=== PATIENT | female | born 1950 | race Caucasian/White ===

== ENCOUNTER 2016-10-26 10:34 | Inpatient (IN) ==
[2016-10-26] MEDS ORDERED: IPRATROPIUM/ALBUTEROL 3 ML AMPUL.NEB NEB ONE (10:57)
--- NOTE | 2016-10-26 10:57 | Emergency Department Note ---
SOB HPI - General Chief Complaint: Shortness of Breath/Dyspnea Stated Complaint: SOB/asthma Time Seen by Provider: 10/26/16 10:53 Source: patient Mode of arrival: ambulatory - History of Present Illness this patient says she was diagnosed with pneumonia a month ago and has taken 2 rounds of antibiotics including doxycycline and Zithromax which she is on currently. She continues to have cough congestion fever and chills and wheezing from her asthma. MD Complaint: shortness of breath, cough Onset (ago): week(s) Context: recent illness Severity: moderate Consistency/Duration: constant Known history of: asthma - Related Data Home Medications Medication Instructions Recorded Confirmed albuterol sulfate HFA 90 90 mcg INHALATION ONCE PRN g 06/12/15 10/26/16 mcg/actuation aerosol inhaler cholecalciferol (vitamin D3) 2,000 2,000 unit PO ONCE 08/04/16 10/26/16 unit capsule tamoxifen 20 mg tablet 20 mg PO QDAY 09/08/16 10/26/16 Previous Rx's Medication Instructions Recorded pramipexole 1 mg tablet 3 mg PO QHS #90 tab 07/14/16 blood sugar diagnostic strips See Dose Instructions .ROUTE 08/04/16 .MEDSUPPLY #200 each blood-glucose meter See Dose Instructions .ROUTE 08/04/16 .MEDSUPPLY #1 each lancets 31 gauge See Dose Instructions .ROUTE 08/04/16 .MEDSUPPLY #200 each metformin ER 500 mg 500 mg PO BID #180 tab 09/08/16 tablet,extended release 24 hr metoprolol succinate ER 50 mg 50 mg PO QDAY #60 tab 09/08/16 tablet,extended release 24 hr albuterol sulfate 2.5 mg/3 mL 2.5 mg INHALATION Q4H PRN #120 ml 10/15/16 (0.083 %) solution for nebulization fluticasone-salmeterol 115 mcg-21 2 inh INHALATION Q12H #12 g 10/20/16 mcg/actuation HFA aerosol inhaler prednisone 5 mg tablet 5 mg PO .COMPLEX #60 tab 10/20/16 valsartan 80 mg tablet 80 mg PO QDAY #60 tab 10/20/16 Allergies Allergy/AdvReac Type Severity Reaction Status Date / Time latex Allergy Unknown Blister Verified 10/20/16 16:20 Penicillins Allergy Unknown Difficulty Verified 10/20/16 16:20 Breathing Muscle relaxers Allergy Unknown Hallucinati Uncoded 07/14/16 07:55 ng shell fish Allergy Unknown Anaphylaxis Uncoded 07/14/16 07:55 Review of Systems Constitutional: Reports: fever, chills Eyes: Denies: eye pain ENT ED: Denies: ear pain Cardiovascular: Denies: chest pain Respiratory: Reports: cough, dyspnea, wheezes Gastrointestinal: Denies: abdominal pain, nausea, vomiting Genitourinary: Denies: urgency Musculoskeletal: Denies: back pain Integumentary: Denies: rash Neurological: Denies: headache Psychiatric: Denies: anxiety Endocrine: Denies: fatigue Past Medical History - Past Medical History [facility] Narrative: Medical History (Last Updated 10/20/16 @ 16:34 by Claudio Wilkinson MD) Restless leg (Chronic) Osteopenia (Chronic) Hypertension (Chronic) Fibromyalgia (Chronic) Breast cancer (Chronic) Asthma (Chronic) History of lumbar fusion (Chronic) Past Surgical History (Last Updated 07/14/16 @ 08:45 by Claudio Wilkinson MD ) History of reduction surgery of right breast (Chronic) Hx of section (Chronic) Hx of cholecystectomy (Chronic) Hx of colonoscopy (Chronic) Hx of fusion of cervical spine (Chronic) Hx of hysterectomy (Chronic) Hx of laminectomy (Chronic) Hx of left breast implant (Chronic) Hx of left knee surgery (Chronic) Hx of spinal surgery (Chronic) Hx of total mastectomy of left breast (Chronic) Family History maternal grandmother Arthritis mother Malignant neoplasm of lung Migraine father Type 2 diabetes mellitus Hypertension daughter Disorder of thyroid Physical Exam - General Limitations: no limitations General appearance: alert - Head Head exam: atraumatic, normocephalic - Eye Eye exam: Present: normal appearance - ENT ENT exam: normal exam - Neck Neck exam: Present: normal inspection - Chest Chest inspection: Present: normal inspection - Respiratory Respiratory exam: Present: wheezes - Cardiovascular Cardiovascular exam: Present: regular rate, normal rhythm, normal heart sounds - Abdominal Exam Abdominal exam: Present: soft. Absent: distention, tenderness - Neurological Exam Neurological exam: Present: alert - Psychiatric Psychiatric exam: Present: normal affect, normal mood - Skin Skin exam: Present: warm, dry, intact, normal color Course Vital Signs Temperature 97.9 F 10/26/16 10:35 Pulse Rate 87 10/26/16 10:35 Respiratory Rate 20 10/26/16 10:35 Blood Pressure 141/98 10/26/16 10:35 Pulse Oximetry (%) 95 10/26/16 10:35 Temperature 97.9 F 10/26/16 10:35 Pulse Rate 84 10/26/16 12:31 Respiratory Rate 20 10/26/16 12:31 Blood Pressure 128/65 10/26/16 12:31 Pulse Oximetry (%) 94 10/26/16 12:31 Shortness of Breath/Dyspnea - [facility] Narrative Medical decision making narrative: chest x-ray today shows normal, CT scan last Wednesday also has a showed right upper and right middle lobe infiltrates.white count was elevated lactic acid was elevated the patient feels terrible.we gave her a DuoNeb treatment. She will be admitted to the hospital by the hospitalist service. - Lab Data Lab results reviewed: Yes I reviewed the patient's lab results. Result diagrams: 10/26/16 11:12 10/26/16 11:12 Lab Results 10/26/16 10/26/16 10/26/16 Range/Units 11:12 11:12 11:12 WBC 14.7 H (4.5-11.0) K/mcL RBC 5.45 H (4.00-5.20) M/mcL Hgb 16.0 H (12.0-15.0) g/dL Hct 48.1 H (36.0-48.0) % MCV 88.3 (80.0-100.0) fL MCH 29.3 (26.0-34.0) pg MCHC 33.2 (31.0-36.0) g/dL RDW 12.7 (11.5-14.5) % Plt Count 320 (140-440) K/mcL MPV 8.4 (7.4-10.4) fL Gran % 88.2 H (38.0-78.0) % Lymph % (Auto) 10.1 L (15.5-49.0) % [place] % (Auto) 1.3 (1.0-12.0) % Eos % (Auto) 0.2 (0.0-7.0) % Baso % (Auto) 0.2 (0.0-2.0) % Gran # 13.0 H (1.8-8.0) K/mcL Lymph # (Auto) 1.5 (1.5-4.8) K/mcL [place] # (Auto) 0.2 (0.1-0.9) K/mcL Eos # (Auto) 0 (0.0-0.7) K/mcL Baso # (Auto) 0 (0.0-0.3) K/mcL VBG Lactic Acid 3.3 H (0.5-2.2) mmol/L Sodium 134 (133-145) mmol/L Potassium 4.8 (3.3-5.1) mmol/L Chloride 94 L (96-108) mmol/L Carbon Dioxide 26 (22-30) mmol/L Anion Gap 14.0 (8-16) BUN 13 (8-23) mg/dl Creatinine 0.9 (0.6-1.1) mg/dl GFR Calculation 67 Glucose 216 H (70-105) mg/dL Calcium 9.4 (8.6-10.4) mg/dl Total Bilirubin 0.7 (0.0-1.0) mg/dL AST 46 H (0-37) U/l ALT 43 H (0-40) U/l Alkaline Phosphatase 67 (39-117) U/L Total Protein 7.6 (5.9-8.4) gm/dL Albumin 4.1 (3.2-5.2) gm/dL Globulin 3.5 (2.2-3.7) gm/dL Albumin/Globulin Ratio 1.2 (1.0-2.3) - Radiology Data Radiology results reviewed: Yes I reviewed the patient's radiology results. Disposition Pt seen by VOCATIONAL TECHNICAL EDUCATION TEACHER/PA only: No Clinical Impression: Community acquired pneumonia Disposition: Xfer As Outpt/Obs ([facility]) Condition: Good Referrals: Claudio Wilkinson MD [Primary Care Provider] - Time of Disposition: 12:54
[2016-10-26 11:34] LABS: Basophils # (Auto) 0 K/mcL (0.0-0.3); Basophils % (Auto) 0.2 % (0.0-2.0); Eosinophils # (Auto) 0 K/mcL (0.0-0.7); Eosinophils % (Auto) 0.2 % (0.0-7.0); Granulocytes % (Auto) 88.2 % (38.0-78.0); Lymphocytes # (Auto) 1.5 K/mcL (1.5-4.8); Lymphocytes % (Auto) 10.1 % (15.5-49.0); Mean Cell Volume 88.3 fL (80.0-100.0); Mean Corpuscular HGB Conc 33.2 g/dL (31.0-36.0); Mean Corpuscular Hemoglobin 29.3 pg (26.0-34.0); Monocytes # (Auto) 0.2 K/mcL (0.1-0.9); Monocytes % (Auto) 1.3 % (1.0-12.0); Platelet Count 320 K/mcL (140-440); RBC 5.45 M/mcL (4.00-5.20); Red Cell Distribution Width 12.7 % (11.5-14.5)
[2016-10-26 11:56] LABS: ALT/SGPT 43 U/l (0-40); Albumin 4.1 gm/dL (3.2-5.2); Albumin/Globulin Ratio 1.2 (1.0-2.3); Alkaline Phosphatase 67 U/L (39-117); Blood Urea Nitrogen 13 mg/dl (8-23)
--- NOTE | 2016-10-26 12:41 | XRay Report ---
CLINICAL INFORMATION: Cough COMPARISON: 10/14/2016 FINDINGS: Heart size, mediastinum and pulmonary vessels are normal. Lungs are clear. No effusions. Spinal cord stimulator electrode and leads in stable satisfactory position. Mild old compression fractures mid thoracic spine stable IMPRESSION: No acute cardiopulmonary disease - stable from 10/14/2016 Interpreted and Authenticated by: Palmer Roche 10/26/16
[2016-10-26 13:43] LABS: Appearance,Urine HAZY; Bacteria,Urine FEW /hpf (0); Bilirubin,Urine NEG (NEG); Color,Urine YELLOW; Glucose,Urine (UA) NEGATIVE (NEG); Leukocyte Esterase,Urine 75 /uL (NEG); Mucus,Urine FEW /hpf (0); Nitrate,Urine POS (NEG); Protein,Urine NEG (NEG); Urine Amorphous Crystals FEW /hpf (0); Urine Blood 0.03 mg/dL (<0.03); Urine RBC 1 /hpf (0-1); Urine Squamous Epithelial Cell 0 /hpf (0-4); Urine Transitional Epi Cells 1 /hpf (0-2); Urine WBC 53 /hpf (0-4); Urobilinogen,Urine NEG (NEG)
[2016-10-26] MEDS ORDERED: ONDANSETRON 4 MG/2 ML VIAL IV PRN (13:55)
[2016-10-26] MEDS ORDERED: ACETAMINOPHEN 325 MG TABLET PO PRN (13:55)
[2016-10-26] MEDS ORDERED: VANCOMYCIN PER PHARMACY IV SCH (13:55)
[2016-10-26] MEDS ORDERED: CEFEPIME 1 GM in DEXTROSE 5% IN WATER 50 ML IV SCH (14:00)
[2016-10-26] MEDS: 0.9 % SODIUM CHLORIDE 1,000 ML IV SCH ×2 (14:20→19:40)
[2016-10-26] MEDS: CEFEPIME 1 GM in DEXTROSE 5% IN WATER 50 ML IV SCH ×2 (14:49→21:52)
[2016-10-26] MEDS: VANCOMYCIN 1,500 MG in 0.9 % SODIUM CHLORIDE 500 ML IV SCH (15:29)
[2016-10-26] MEDS ORDERED: 0.9 % SODIUM CHLORIDE 1,000 ML IV ONE (15:35)
[2016-10-26] MEDS: IPRATROPIUM/ALBUTEROL 3 ML AMPUL.NEB NEB SCH ×3 (15:54→23:05)
[2016-10-26] MEDS ORDERED: DEXTROSE 31 GM ORAL.SUSP PO PRN (17:46)
[2016-10-26] MEDS ORDERED: DEXTROSE 50% 50 ML VIAL IV PRN (17:46)
[2016-10-26] MEDS: metFORMIN 500 MG TAB.XL.24H PO SCH (18:01)
--- NOTE | 2016-10-26 18:18 | Internal Med History&Physical ---
Medical - H&P: HPI Patient information: Note initiated : 10/26/16 at 6:15 pm Service Date, if different from initiated Date: [] Patient: Michelle Green a 66 y/o F admitted on 10/26/16 for SOB/asthma. Chief Complaint: [] History of present illness: Ms. Green is a 66 year old Female with history of asthma, history of breast cancer presents to the ER with complaints of shortness of breath and not feeling well. According to the patient, she startedto have these symptoms approximately 1 month ago when [place] The patient was treated with a short course of steroids and antibiotics by her primary care physician at that point. The patient responded to treatment. However a three weeks later he started to have symptoms again. The patient's primary care physician started the patient on a long prednisone taper as well as Zithromax. the patient 's primary care provider ordered a CT scan which showed pneumonia in the right middle and upper lobe. The last 2 days. The patient has not been feeding well and is increasingly more short of breath ssociated with wheezing and dry cough. The patient has decreased effort tolerance. The shortness of breath is worse with activity and better with rest. Aggravated by smoke outside. The patient therefore presented to the ED. In the emergency room the x-ray chest is interpreted as negative. The patient's labs showed leukocytosis, elevated lactic acid, and a urine analysis positive, which is indicative of a urinary tract infection.he patient denies any symptoms suggestive of urinary tract infection, like burning micturition, foul-smelling urine or increased frequency of urination. The patient denies any chest pain, headache, dizziness, blurring of vision, sputum production, hemoptysis. She denies nausea, vomiting. She denies any COMPLAINTS, the patient has no other complaints except as mentioned above in HPI. All systems: reviewed and no additional remarkable complaints except as stated ( as per HPI) Medical - H&P: [facility] Medical history: Medical History (Last Updated 10/26/16 @ 12:54 by Christopher Mcgovern MD) Restless leg (Chronic) Osteopenia (Chronic) Hypertension (Chronic) Fibromyalgia (Chronic) Breast cancer (Chronic) Asthma (Chronic) History of lumbar fusion (Chronic) Surgical history: Past Surgical History (Last Updated 07/14/16 @ 08:45 by Claudio Wilkinson MD ) History of reduction surgery of right breast (Chronic) Hx of section (Chronic) Hx of cholecystectomy (Chronic) Hx of colonoscopy (Chronic) Hx of fusion of cervical spine (Chronic) Hx of hysterectomy (Chronic) Hx of laminectomy (Chronic) Hx of left breast implant (Chronic) Hx of left knee surgery (Chronic) Hx of spinal surgery (Chronic) Hx of total mastectomy of left breast (Chronic) Pertinent family history: Family History maternal grandmother Arthritis mother Malignant neoplasm of lung Migraine father Type 2 diabetes mellitus Hypertension daughter Disorder of thyroid Medical - H&P: Meds Home Medications Medication Instructions Recorded Confirmed Type albuterol sulfate HFA 90 90 mcg INHALATION ONCE PRN g 06/12/15 10/26/16 History mcg/actuation aerosol inhaler cholecalciferol (vitamin D3) 2,000 2,000 unit PO DAILY 08/04/16 10/26/16 History unit capsule metformin ER 500 mg 500 mg PO BID #180 tab 09/08/16 10/26/16 Rx tablet,extended release 24 hr tamoxifen 20 mg tablet 20 mg PO HS 09/08/16 10/26/16 History albuterol sulfate 2.5 mg/3 mL 2.5 mg INHALATION Q4H PRN #120 ml 10/15/16 Rx (0.083 %) solution for nebulization fluticasone-salmeterol 115 mcg-21 2 inh INHALATION Q12H #12 g 10/20/16 10/26/16 Rx mcg/actuation HFA aerosol inhaler prednisone 5 mg tablet 5 mg PO .COMPLEX #60 tab 10/20/16 10/26/16 Rx valsartan 80 mg tablet 80 mg PO QDAY #60 tab 10/20/16 10/26/16 Rx Blood Sugar Diagnostic [Contour] 1 dose .ROUTE .MEDSUPPLY 10/26/16 History Blood-Glucose Meter [Contour] 1 dose .ROUTE .MEDSUPPLY 10/26/16 10/26/16 History Lancets [Pro Comfort Lancet] 1 dose .ROUTE .MEDSUPPLY 10/26/16 10/26/16 History Metoprolol Succinate [Toprol Xl] 50 mg PO HS 10/26/16 10/26/16 History Pramipexole Di-HCl [Mirapex] 2 mg PO QHS 10/26/16 10/26/16 History Allergies Allergy/AdvReac Type Severity Reaction Status Date / Time Penicillins Allergy Severe Difficulty Verified 10/26/16 13:58 Breathing shellfish derived Allergy Severe Anaphylaxis Verified 10/26/16 13:58 latex Allergy Unknown Blister Verified 10/20/16 16:20 Medical - H&P: Exam - Constitutional Vitals: Temp Pulse Resp BP Pulse Ox 99.1 F H 86 18 137/61 95 10/26/16 16:06 10/26/16 16:06 10/26/16 16:06 10/26/16 16:06 10/26/16 16:06 Exam: GENERAL: The patient is a well-developed, well-nourished in no apparent distress. Is alert and oriented x3. VITAL SIGNS: Reviewed and as noted elsewhere. HEENT: Head is normocephalic and atraumatic. Extraocular muscles are intact. Pupils are equal, round, and reactive to light. Nares appeared normal. Mouth appears any without lesions. Mucous membranes are moist. NECK: Normal to inspection, Supple, No lymphadenopathy or thyromegaly. LUNGS: Air entry equal on both sides, bilateral poor air entry, bilateral wheezing and proloned exp phase. patient is able to speak full sentences, no accessory muscle use. HEART: Regular rate and rhythm normal, S1 and S2 heard, no Gallop, S3 or Rub Noted, No Gross murmur heard. ABDOMEN: Soft, nontender, and nondistended. Positive bowel sounds. No hepatosplenomegaly was noted. EXTREMITIES: No cyanosis, clubbing, rash, lesions or edema. NEUROLOGIC: Cranial nerves II through XII are grossly intact. Motor and Sensory System Grossly Intact PSYCHIATRIC: Normal affect, Normal Mood. Appropriate Behavior. SKIN: No ulceration or wounds noted, No jaundice, No rash noted. Medical - H&P: Reslt - Labs CBC & Chem 7: 10/26/16 11:12 10/26/16 11:12 Medical - H&P: A/P - Narrative A/P Narrative: A/P Sepsis Pneumonia community Acquired Lactic acidosis Hypglycemia H/o Breast cancer HTN Acute hypoxic Respiratory failure Acute asthma exacerbation. Plan Treat sepsis per protocol, IV fluids, IV antibiotics. IV vanco and zosyn for pneumonia, check urine legionella and mycoplasma antigen. , Pt has already recieved zithromax Iv steroids and DUonebs for asthma Sliding sclae insulin , fingerstick achs. Resume home meds, hold metformin. Oxygen supplementation; DNR Status Carb consistent diet. Medical - H&P: Qual - Stroke Symptom Onset Unknown: No - VTE Deep Vein Thrombosis/Pulmonary Embolism Present on Admission: No Social History - Social History marital status: occupational status: retired - Tobacco smoking status: Never smoker - Alcohol alcohol intake frequency: does not drink - Substance use substance use type: does not use
[2016-10-26] MEDS: TAMOXIFEN 10 MG TABLET PO SCH (21:04)
[2016-10-26] MEDS: METOPROLOL SUCCINATE 50 MG TAB.XL.24H PO SCH (21:04)
[2016-10-26] MEDS: PRAMIPEXOLE 1 MG TABLET PO SCH (21:04)
[2016-10-26] MEDS: INSULIN LISPRO 1 UNIT/0.01 ML UNIT SQ SCH (21:09)
[2016-10-26] MEDS: methylPREDNISolone SOD SUCC 125 MG/2 ML VIAL IV SCH (21:52)
[2016-10-26] MEDS: guaiFENesin/DEXTROMETHORPHAN ORAL SOL PO PRN (22:09)
[2016-10-27] MEDS: IPRATROPIUM/ALBUTEROL 3 ML AMPUL.NEB NEB SCH ×6 (02:26→23:09)
[2016-10-27] MEDS: 0.9 % SODIUM CHLORIDE 1,000 ML IV SCH ×3 (02:32→09:15)
[2016-10-27] MEDS: guaiFENesin/DEXTROMETHORPHAN ORAL SOL PO PRN ×3 (02:34→18:19)
[2016-10-27] MEDS: methylPREDNISolone SOD SUCC 125 MG/2 ML VIAL IV SCH ×3 (05:44→21:07)
[2016-10-27] MEDS: CEFEPIME 1 GM in DEXTROSE 5% IN WATER 50 ML IV SCH ×3 (05:44→20:58)
[2016-10-27 05:52] LABS: Basophils # (Auto) 0 K/mcL (0.0-0.3); Basophils % (Auto) 0 % (0.0-2.0); Eosinophils # (Auto) 0 K/mcL (0.0-0.7); Eosinophils % (Auto) 0 % (0.0-7.0); Granulocytes % (Auto) 93.1 % (38.0-78.0); Lymphocytes # (Auto) 0.7 K/mcL (1.5-4.8); Lymphocytes % (Auto) 6.5 % (15.5-49.0); Mean Cell Volume 90.8 fL (80.0-100.0); Mean Corpuscular HGB Conc 33.4 g/dL (31.0-36.0); Mean Corpuscular Hemoglobin 30.4 pg (26.0-34.0); Monocytes # (Auto) 0 K/mcL (0.1-0.9); Monocytes % (Auto) 0.4 % (1.0-12.0); Platelet Count 216 K/mcL (140-440); RBC 4.27 M/mcL (4.00-5.20); Red Cell Distribution Width 12.6 % (11.5-14.5)
[2016-10-27 06:21] LABS: ALT/SGPT 34 U/l (0-40); Albumin 3.3 gm/dL (3.2-5.2); Albumin/Globulin Ratio 1.2 (1.0-2.3); Alkaline Phosphatase 51 U/L (39-117); Bilirubin,Direct < 0.2 mg/dL (0.0-0.3); Blood Urea Nitrogen 12 mg/dl (8-23); Gamma Glutamyl Transpeptidase 97 U/L (5-36); Magnesium 1.9 mg/dL (1.6-2.5); Uric Acid 6.1 mg/dL (2.5-8.0)
[2016-10-27] MEDS: metFORMIN 500 MG TAB.XL.24H PO SCH ×2 (07:51→17:48)
[2016-10-27] MEDS: INSULIN LISPRO 1 UNIT/0.01 ML UNIT SQ SCH ×4 (08:03→21:02)
[2016-10-27] MEDS: VANCOMYCIN 1,500 MG in 0.9 % SODIUM CHLORIDE 500 ML IV SCH (08:44)
[2016-10-27] MEDS: VITAMIN D3 1,000 UNIT TABLET PO SCH (08:44)
[2016-10-27] MEDS: LOSARTAN 50 MG TABLET PO SCH (08:44)
[2016-10-27] MEDS ORDERED: VALSARTAN 80 MG TABLET PO SCH (09:00)
--- NOTE | 2016-10-27 17:31 | Internal Med Progress Note ---
Medical - PN: Subj Patient information: Note initiated : 10/27/16 at 5:29 pm Service Date, if different from initiated Date: [] Patient: Michelle Green a 66 y/o F admitted on 10/26/16 for SOB, Asthma/ Sepsis, Pneumonia. Chief Complaint: [] Interval history: Ms. Green is a 66 year old Female with history of asthma, history of breast cancer presents to the ER with complaints of shortness of breath and not feeling well. According to the patient, she startedto have these symptoms approximately 1 month ago when [place] The patient was treated with a short course of steroids and antibiotics by her primary care physician at that point. The patient responded to treatment. However a three weeks later he started to have symptoms again. The patient's primary care physician started the patient on a long prednisone taper as well as Zithromax. the patient 's primary care provider ordered a CT scan which showed pneumonia in the right middle and upper lobe. The last 2 days. The patient has not been feeding well and is increasingly more short of breath ssociated with wheezing and dry cough. The patient has decreased effort tolerance. The shortness of breath is worse with activity and better with rest. Aggravated by smoke outside. The patient therefore presented to the ED. In the emergency room the x-ray chest is interpreted as negative. The patient's labs showed leukocytosis, elevated lactic acid, and a urine analysis positive, which is indicative of a urinary tract infection.he patient denies any symptoms suggestive of urinary tract infection, like burning micturition, foul-smelling urine or increased frequency of urination. The patient denies any chest pain, headache, dizziness, blurring of vision, sputum production, hemoptysis. She denies nausea, vomiting. She denies any COMPLAINTS, the patient has no other complaints except as mentioned above in HPI. 10/27: Pt seen examined, no acute overnight events, doing well, her breathing is a bit better than yesterday,stil has shortness of breath with activity and cough. he denies any, abdominal pain, nausea or vomiting. blood cultures are pending, urine culture is reported as gram-negative bacillus. Pertinent ROS: Denies headache, dizziness Denies chest pain, palpitations Present cough amd shortness of breath Denies abdominal pain, nausea or vomiting. - Constitutional Vitals: Vital Signs Temp Pulse Resp BP Pulse Ox 99.0 F H 93 H 20 139/72 92 10/27/16 16:00 10/27/16 15:07 10/27/16 16:00 10/27/16 16:00 10/27/16 16:00 Period Temp Pulse Resp BP Sys/Rivas Pulse Ox Last 24 Hr 97.8 F-99.0 F 79-98 14-20 123-139/53-90 92-97 Intake and Output 10/27/16 10/27/16 10/27/16 05:59 13:59 21:59 Intake Total 2009 290 / 290 Output Total 1051 / 1051 1251 / 1251 Balance 959 / 959 -961 / -961 Weight 169 lb 1.6 oz Patient Weight 10/28/16 05:59 Weight 169 lb 1.6 oz Intake & Output: Intake & Output 10/27/16 10/27/16 10/27/16 05:59 13:59 21:59 Intake Total 2009 290 / 290 Output Total 1051 / 1051 1251 / 1251 Balance 959 / 959 -961 / -961 Weight 169 lb 1.6 oz Intake: IV 1050 / 1050 50 / 50 Sodium Chloride 0.9% 1, 1000 / 1000 000 ml @ 100 mls/hr IV . Q10H ANASTACIO Rx#:[id number] Maxipime 1 gm In Dextrose 50 / 50 50 / 50 5% in Water 50 ml @ 100 mls/hr IV Q8H ANASTACIO Rx#: [id number] Oral 960 / 960 240 / 240 Output: Void Amount 1050 / 1050 1250 / 1250 # of times incontinent of urine Other: Meal Breakfast Percent of Meal Consumed 100% Feeding Ability Assist with Tray Set Up # Voids 1 # Bowel Movements 0 Exam: Constitutional; Afebrile, cooperative, alert, not in distress. Eyes- No icterus, , No periorbital swelling Ears- Ext ear normal, hearing normal to conversation. Neck- Midline trachea, supple Respiratory system: Air Entry equal on both sidesher mom. Bilateral wheeze and prolonged expiratory phase. No accessory muscle use. Able to speak full sentences CVS- Rate rhythm regular, S1,S2 heard, no gallop, no rub. Abdomen- Soft nontender abdomen, no organomegaly, no tenderness, no guarding or rigidity, COP WINDER- AOOx3, moving all extremities, no gross focal deficit noted. Medical - PN: Obj Da - Labs CBC & Chem 7: 10/27/16 04:01 10/27/16 04:01 Labs: Abnormal Lab Results 10/27/16 10/27/16 10/26/16 04:01 04:01 14:30 WBC 11.1 H Gran % 93.1 H Lymph % (Auto) 6.5 L [place] % (Auto) 0.4 L Gran # 10.3 H Lymph # (Auto) 0.7 L [place] # (Auto) 0 L VBG Lactic Acid 2.3 H Carbon Dioxide 18 L Anion Gap 19.0 H Glucose 248 H Calcium 8.2 L GGT 97 H Meds: Medications Acetaminophen (Tylenol) 650 mg PO Q6HP PRN PRN Reason: PAIN/FEVER > 101 Albuterol/Ipratropium (Duoneb) 3 ml NEB Q4HRT [facility] Last Admin: 10/27/16 15:06 Dose: 3 ml Dextrose (Dextrose 50%) 0 ml IV UD PRN PRN Reason: Hypoglycemia Diagnostic Test (Pha) (Accu-Chek) 1 each FS ACHS [facility] Last Admin: 10/27/16 17:10 Dose: 1 each Glucose (Insta-Glucose) 15 gm PO PRN PRN PRN Reason: Hypoglycemia Guaifenesin (Robitussin Dm) 10 ml PO Q4HP PRN PRN Reason: Cough Last Admin: 10/27/16 10:50 Dose: 10 ml Vancomycin HCl 1,500 mg/ (Sodium Chloride) 500 mls @ 333.3 mls/hr IV Q24H [facility] Last Admin: 10/27/16 08:44 Dose: 250 mls/hr Cefepime HCl 1 gm/ Dextrose 50 mls @ 100 mls/hr IV Q8H [facility] Last Admin: 10/27/16 14:32 Dose: 100 mls/hr Insulin Human Lispro (Humalog) 0 unit SQ ACHS [facility] PRN Reason: Protocol Last Admin: 10/27/16 11:41 Dose: 3 unit Losartan Potassium (Cozaar) 50 mg PO DAILY [facility] Last Admin: 10/27/16 08:44 Dose: 50 mg Metformin HCl (Glucophage) 500 mg PO BIDCC [facility] Last Admin: 10/27/16 07:51 Dose: 500 mg Methylprednisolone Sodium Succinate (Solu-Medrol) 62.5 mg IV Q8 [facility] Last Admin: 10/27/16 14:32 Dose: 62.5 mg Metoprolol Succinate (Toprol Xl) 50 mg PO HS [facility] Last Admin: 10/26/16 21:04 Dose: 50 mg Ondansetron HCl (Zofran) 4 mg IV Q4HP PRN PRN Reason: Nausea And Vomiting Pramipexole Dihydrochloride (Mirapex) 2 mg PO QHS [facility] Last Admin: 10/26/16 21:04 Dose: 2 mg Tamoxifen Citrate (Tamoxifen) 20 mg PO [facility] Last Admin: 10/26/16 21:04 Dose: 20 mg Vancomycin HCl (Vancomycin Per Pharmacy) 1 order IV [facility] Vitamin D (Vitamin D3) 2,000 unit PO DAILY [facility] Last Admin: 10/27/16 08:44 Dose: 2,000 unit Medical - PN: A/P - Time Spent With Patient Total time spent is greater than 50% in coordination of care (as documented) at patient's floor/unit and/or counseling patient: - Narrative A/P Narrative: A/P Sepsis Pneumonia community Acquired Lactic acidosis Hypglycemia H/o Breast cancer HTN Acute hypoxic Respiratory failure Acute asthma exacerbation. Plan wBC count is much better today, Continue IV vancomycin and Zosyn for pneumonia, which should also cover for gram -negative gracilis in the urine. Ex Continue sliding scale insulin for diabetes. Continue oxygen supplementation. 4. Hypoxic respiratory failure. Continue IV steroids and duonebs for acute asthma exacerbation. DNR Status Carb consistent diet. Medical - PN: Qual - Stroke Symptom Onset Unknown: No - VTE Deep Vein Thrombosis/Pulmonary Embolism Present on Admission: No
[2016-10-27] MEDS: METOPROLOL SUCCINATE 50 MG TAB.XL.24H PO SCH (20:58)
[2016-10-27] MEDS: PRAMIPEXOLE 1 MG TABLET PO SCH (20:58)
[2016-10-27] MEDS: TAMOXIFEN 10 MG TABLET PO SCH (20:58)
[2016-10-28] MEDS: IPRATROPIUM/ALBUTEROL 3 ML AMPUL.NEB NEB SCH ×5 (02:44→19:04)
[2016-10-28] MEDS: methylPREDNISolone SOD SUCC 125 MG/2 ML VIAL IV SCH ×2 (05:27→14:07)
[2016-10-28] MEDS: CEFEPIME 1 GM in DEXTROSE 5% IN WATER 50 ML IV SCH ×2 (05:27→14:05)
[2016-10-28 06:16] LABS: Basophils # (Auto) 0 K/mcL (0.0-0.3); Basophils % (Auto) 0.1 % (0.0-2.0); Eosinophils # (Auto) 0.1 K/mcL (0.0-0.7); Eosinophils % (Auto) 0.4 % (0.0-7.0); Lymphocytes # (Auto) 1.2 K/mcL (1.5-4.8); Lymphocytes % (Auto) 5.7 % (15.5-49.0); Mean Cell Volume 88.1 fL (80.0-100.0); Mean Corpuscular HGB Conc 33.7 g/dL (31.0-36.0); Mean Corpuscular Hemoglobin 29.7 pg (26.0-34.0); Monocytes # (Auto) 0.2 K/mcL (0.1-0.9); Monocytes % (Auto) 0.8 % (1.0-12.0); Platelet Count 223 K/mcL (140-440); RBC 4.45 M/mcL (4.00-5.20)
[2016-10-28 06:39] LABS: ALT/SGPT 42 U/l (0-40); Albumin 3.7 gm/dL (3.2-5.2); Albumin/Globulin Ratio 1.5 (1.0-2.3); Alkaline Phosphatase 50 U/L (39-117); Bilirubin,Direct < 0.2 mg/dL (0.0-0.3); Blood Urea Nitrogen 12 mg/dl (8-23); Gamma Glutamyl Transpeptidase 108 U/L (5-36); Magnesium 2.1 mg/dL (1.6-2.5); Uric Acid 4.9 mg/dL (2.5-8.0)
[2016-10-28] MEDS ORDERED: 0.9 % SODIUM CHLORIDE 1,000 ML IV ONE ×4 (07:12→11:34)
[2016-10-28] MEDS: metFORMIN 500 MG TAB.XL.24H PO SCH (07:42)
[2016-10-28] MEDS: INSULIN LISPRO 1 UNIT/0.01 ML UNIT SQ SCH ×4 (07:43→21:20)
--- NOTE | 2016-10-28 08:24 | XRay Report ---
CLINICAL INFORMATION: Cough COMPARISON: 10/26/2016 FINDINGS: Heart size, mediastinum and pulmonary vessels are normal. Minor left basilar atelectasis noted - no definite infiltrates or effusions. Bones and soft tissues are normal IMPRESSION: Minor left basilar atelectasis Interpreted and Authenticated by: Palmer Roche 10/28/16
[2016-10-28] MEDS: VITAMIN D3 1,000 UNIT TABLET PO SCH (08:38)
[2016-10-28] MEDS: LOSARTAN 50 MG TABLET PO SCH (08:38)
[2016-10-28] MEDS: guaiFENesin/DEXTROMETHORPHAN ORAL SOL PO PRN ×3 (09:35→21:15)
[2016-10-28] MEDS: VANCOMYCIN 1,500 MG in 0.9 % SODIUM CHLORIDE 500 ML IV SCH ×3 (09:58→13:02)
--- NOTE | 2016-10-28 12:33 | Internal Med Progress Note ---
Medical - PN: Subj Patient information: Note initiated : 10/28/16 at 12:30 pm Service Date, if different from initiated Date: [] Patient: Michelle Green a 66 y/o F admitted on 10/26/16 for SOB, Asthma/ Sepsis, Pneumonia. Chief Complaint: [] Interval history: Ms. Green is a 66 year old Female with history of asthma, history of breast cancer presents to the ER with complaints of shortness of breath and not feeling well. According to the patient, she startedto have these symptoms approximately 1 month ago [place] The patient was treated with a short course of steroids and antibiotics by her primary care physician at that point. The patient responded to treatment. However a three weeks later he started to have symptoms again. The patient's primary care physician started the patient on a long prednisone taper as well as Zithromax. the patient 's primary care provider ordered a CT scan which showed pneumonia in the right middle and upper lobe. The last 2 days. The patient has not been feeding well and is increasingly more short of breath ssociated with wheezing and dry cough. The patient has decreased effort tolerance. The shortness of breath is worse with activity and better with rest. Aggravated by smoke outside. The patient therefore presented to the ED. In the emergency room the x-ray chest is interpreted as negative. The patient's labs showed leukocytosis, elevated lactic acid, and a urine analysis positive, which is indicative of a urinary tract infection.he patient denies any symptoms suggestive of urinary tract infection, like burning micturition, foul-smelling urine or increased frequency of urination. The patient denies any chest pain, headache, dizziness, blurring of vision, sputum production, hemoptysis. She denies nausea, vomiting. She denies any COMPLAINTS, the patient has no other complaints except as mentioned above in HPI. 10/27: Pt seen examined, no acute overnight events, doing well, her breathing is a bit better than yesterday,stil has shortness of breath with activity and cough. he denies any, abdominal pain, nausea or vomiting. blood cultures are pending, urine culture is reported as gram-negative bacillus. 10/28: patient seen and examined, noted overnight events, patient slept okay. This morning, a lactic acid has been elevated at 5.1. Patient has a low-grade temperature. She denies any worsening cough, denies any abdominal pain. The patient has been on metformin,which is likely to have been the etiology behind the acidosis. We will give fluid resuscitation and reassess the patient's lactic acidosis. The patient remains on broad-spectrum IV antibiotics Urine culture growing Escherichia coli sensitiveto the present antibiotics. Pertinent ROS: Denies headache, dizziness Denies chest pain, palpitations improving cough and shortness of breath Denies abdominal pain, nausea or vomiting. - Constitutional Vitals: Vital Signs Temp Pulse Resp BP Pulse Ox 99.0 F H 85 20 141/72 94 10/28/16 12:00 10/28/16 11:08 10/28/16 12:00 10/28/16 12:00 10/28/16 12:00 Period Temp Pulse Resp BP Sys/Rivas Pulse Ox Last 24 Hr 99.0 F-99.8 F 85-108 15-20 127-151/62-72 92-95 Intake and Output 10/27/16 10/28/16 10/28/16 21:59 05:59 13:59 Intake Total 1397 / 1397 720 / 720 1530 / 1530 Output Total 1000 / 1000 Balance 1396 / 1396 720 / 720 530 / 530 Weight 179 lb Intake & Output: Intake & Output 10/27/16 10/28/16 10/28/16 21:59 05:59 13:59 Intake Total 1397 / 1397 720 / 720 1530 / 1530 Output Total 1000 / 1000 Balance 1396 / 1396 720 / 720 530 / 530 Weight 179 lb Intake: IV 1097 / 1097 1050 / 1050 Sodium Chloride 0.9% 1, 1000 / 1000 000 ml @ Wide Open IV [facility] Rx#:[id number] Maxipime 1 gm In Dextrose 97 / 97 50 / 50 5% in Water 50 ml @ 100 mls/hr IV Q8H [facility] Rx#: [id number] Oral 300 / 300 720 / 720 480 / 480 Output: Void Amount 1000 / 1000 # of times incontinent of urine Other: Meal Lunch Percent of Meal Consumed 100% # Voids 1 03 22 Exam: Constitutional; Afebrile, cooperative, alert, not in distress. Eyes- No icterus, , No periorbital swelling Ears- Ext ear normal, hearing normal to conversation. Neck- Midline trachea, supple Respiratory system: Air Entry equal on both sides, prolonged expiratory phase, bilateral expiratory wheezes present. CVS- Rate rhythm regular, S1,S2 heard, no gallop, no rub. Abdomen- Soft nontender abdomen, no organomegaly, no tenderness, no guarding or rigidity, DIRECTOR OF ROOMS- AOOx3, moving all extremities, no gross focal deficit noted. Medical - PN: Obj Da - Labs CBC & Chem 7: 10/28/16 03:45 10/28/16 03:45 Labs: Abnormal Lab Results 10/28/16 10/28/16 10/28/16 10:40 03:45 03:45 WBC Gran % Lymph % (Auto) [place] % (Auto) Gran # Lymph # (Auto) [place] # (Auto) VBG Lactic Acid 4.9 H* 5.0 H* Carbon Dioxide 19 L Anion Gap 19.0 H Glucose 253 H Calcium Phosphorus 2.0 L GGT 108 H ALT 42 H 10/28/16 10/27/16 10/27/16 03:45 04:01 04:01 WBC 20.3 H 11.1 H Gran % 93.0 H 93.1 H Lymph % (Auto) 5.7 L 6.5 L [place] % (Auto) 0.8 L 0.4 L Gran # 18.8 H 10.3 H Lymph # (Auto) 1.2 L 0.7 L [place] # (Auto) 0 L VBG Lactic Acid Carbon Dioxide 18 L Anion Gap 19.0 H Glucose 248 H Calcium 8.2 L Phosphorus GGT 97 H ALT 10/26/16 14:30 WBC Gran % Lymph % (Auto) [place] % (Auto) Gran # Lymph # (Auto) [place] # (Auto) VBG Lactic Acid 2.3 H Carbon Dioxide Anion Gap Glucose Calcium Phosphorus GGT ALT Meds: Medications Acetaminophen (Tylenol) 650 mg PO Q6HP PRN PRN Reason: PAIN/FEVER > 101 Albuterol/Ipratropium (Duoneb) 3 ml NEB Q4HRT [facility] Last Admin: 10/28/16 11:07 Dose: 3 ml Dextrose (Dextrose 50%) 0 ml IV UD PRN PRN Reason: Hypoglycemia Diagnostic Test (Pha) (Accu-Chek) 1 each FS ACHS [facility] Last Admin: 10/28/16 12:01 Dose: 1 each Glucose (Insta-Glucose) 15 gm PO PRN PRN PRN Reason: Hypoglycemia Guaifenesin (Robitussin Dm) 10 ml PO Q4HP PRN PRN Reason: Cough Last Admin: 10/28/16 09:35 Dose: 10 ml Cefepime HCl 1 gm/ Dextrose 50 mls @ 100 mls/hr IV Q8H [facility] Last Infusion: 10/28/16 08:41 Dose: Infused Vancomycin HCl 1,500 mg/ (Sodium Chloride) 500 mls @ 333.3 mls/hr IV Q12H [facility] Last Admin: 10/28/16 09:58 Dose: 333.3 mls/hr Insulin Human Lispro (Humalog) 0 unit SQ ACHS [facility] PRN Reason: Protocol Last Admin: 10/28/16 12:00 Dose: 3 unit Losartan Potassium (Cozaar) 50 mg PO DAILY [facility] Last Admin: 10/28/16 08:38 Dose: 50 mg Methylprednisolone Sodium Succinate (Solu-Medrol) 62.5 mg IV Q8 [facility] Last Admin: 10/28/16 05:27 Dose: 62.5 mg Metoprolol Succinate (Toprol Xl) 50 mg PO [facility] Last Admin: 10/27/16 20:58 Dose: 50 mg Ondansetron HCl (Zofran) 4 mg IV Q4HP PRN PRN Reason: Nausea And Vomiting Pramipexole Dihydrochloride (Mirapex) 2 mg PO QHS [facility] Last Admin: 10/27/16 20:58 Dose: 2 mg Tamoxifen Citrate (Tamoxifen) 20 mg PO [facility] Last Admin: 10/27/16 20:58 Dose: 20 mg Vancomycin HCl (Vancomycin Per Pharmacy) 1 order IV [facility] Vitamin D (Vitamin D3) 2,000 unit PO DAILY [facility] Last Admin: 10/28/16 08:38 Dose: 2,000 unit Medical - PN: A/P - Time Spent With Patient Total time spent is greater than 50% in coordination of care (as documented) at patient's floor/unit and/or counseling patient: - Narrative A/P Narrative: A/P Sepsis: stable clinically, lactic acicdosis is concerning, but overall clinically she feels better, I think lactic acidosis has another source than sepsis. IV fluids ofr now. Pneumonia community Acquired: failed outpatient treatment, on vanco and zosyn continue same. Clinically she seems to be improving Hyper glycemia due to steroids as well as diabetes. Sliding scale insulin.e will increase the dose of sliding scale insulin. HTN blood pressure seems reasonably controlled,e'll continue her home dose of medications. Acute hypoxic Respiratory failure: due to pneumonia as well as asthma exacerbation. Continue with oxygen supplementation as needed Acute asthma exacerbation. lactic acidosis:likely due to metformin, IV fluids for now, reassess. Will broaden workup if does not respond. Patient's also sometimes developed lactic acidosis secondary to albuterol use. Clinically patient seems to be improving. Elevated WBC / Leucocytosis: likely secondary to infection as well as use of steroids. DNR Status Carb consistent diet. Medical - PN: Qual - Stroke Symptom Onset Unknown: No - VTE Deep Vein Thrombosis/Pulmonary Embolism Present on Admission: No
[2016-10-28 15:17] LABS: Blood Urea Nitrogen 11 mg/dl (8-23)
[2016-10-28] MEDS: 0.45 % SODIUM CHLORIDE 1,000 ML IV SCH (16:02)
[2016-10-28] MEDS ORDERED: IOPAMIDOL 100 ML BOTTLE IJ ONE (18:27)
[2016-10-28] MEDS: TAMOXIFEN 10 MG TABLET PO SCH (21:20)
[2016-10-28] MEDS: PRAMIPEXOLE 1 MG TABLET PO SCH (21:20)
[2016-10-28] MEDS: METOPROLOL SUCCINATE 50 MG TAB.XL.24H PO SCH (21:20)
[2016-10-29] MEDS: VANCOMYCIN 1,500 MG in 0.9 % SODIUM CHLORIDE 500 ML IV SCH ×2 (00:44→20:28)
[2016-10-29] MEDS: methylPREDNISolone SOD SUCC 125 MG/2 ML VIAL IV SCH ×4 (01:56→23:37)
[2016-10-29] MEDS: 0.45 % SODIUM CHLORIDE 1,000 ML IV SCH ×5 (01:56→23:35)
[2016-10-29] MEDS: CEFEPIME 1 GM in DEXTROSE 5% IN WATER 50 ML IV SCH ×4 (01:56→23:35)
[2016-10-29] MEDS: IPRATROPIUM/ALBUTEROL 3 ML AMPUL.NEB NEB SCH ×4 (02:07→18:45)
[2016-10-29] MEDS: guaiFENesin/DEXTROMETHORPHAN ORAL SOL PO PRN ×2 (02:29→08:25)
[2016-10-29 06:02] LABS: Basophils # (Auto) 0 K/mcL (0.0-0.3); Basophils % (Auto) 0.1 % (0.0-2.0); Eosinophils # (Auto) 0.1 K/mcL (0.0-0.7); Eosinophils % (Auto) 0.5 % (0.0-7.0); Granulocytes % (Auto) 91.9 % (38.0-78.0); Lymphocytes # (Auto) 1.1 K/mcL (1.5-4.8); Lymphocytes % (Auto) 5.8 % (15.5-49.0); Mean Cell Volume 88.9 fL (80.0-100.0); Mean Corpuscular HGB Conc 33.7 g/dL (31.0-36.0); Monocytes # (Auto) 0.3 K/mcL (0.1-0.9); Monocytes % (Auto) 1.7 % (1.0-12.0); Platelet Count 186 K/mcL (140-440); RBC 3.93 M/mcL (4.00-5.20)
--- NOTE | 2016-10-29 06:16 | Cat Scan Report ---
CLINICAL INFORMATION: Fever COMPARISON: Chest CT from one week prior - 10/21/2016 TECHNIQUE: Enteric contrast was utilized. 80 cc of Isovue-300 were injected intravenously, and 50 seconds later 2.5 mm helical slices were obtained from the lung apices through the subtrochanteric regions of the femurs. Following reconstruction, 2.5 mm sagittal, coronal and axial reformatted images were processed and reviewed at multiple windows and levels. 7 mm MIP reconstructions were obtained through the lungs to optimize nodule detection. FINDINGS: Pulmonary parenchymal windows show only subsegmental atelectasis in the right middle and lower lobes. A very small focus of groundglass airspace disease in the superior segment of the right lower lobe is unchanged and likely fibrotic. No new pulmonary abnormalities - no tami infiltrates on today's study. Pleural spaces are normal. Mediastinal windows show the heart is grossly normal in size and configuration. No significant plaque appreciated the coronary arteries. The thoracic aorta and pulmonary arteries are well opacified and normal in contour and caliber. There is no adenopathy in the mediastinal hilar or axillary regions. Esophagus is grossly normal. Thyroid is normal. Left breast implant appears intact. Minor scarring present within the right breast which is stable Images through the abdomen show the gallbladder is surgically absent. Common bile duct is mildly dilated: 9 mm suggest suggesting possible mild post cholecystectomy papillary stenosis. The liver, both kidneys, adrenal glands, spleen, pancreas and aorta, and aortic branches, are normal in size, configuration and attenuation without without focal lesion. Images through the pelvis show urinary bladder to be normal. Hysterectomy/oophorectomy changes noted. A small collection of free fluid is noted deep true pelvis - 6.8 x 3 cm. Few sigmoid diverticuli noted. The remainder of the colon small bowel stomach are normal. Appendectomy changes acknowledged. Bone windows show L4-5 anterior/posterior fusion changes and wide laminectomy appears solid and anatomically aligned. Spinal stimulator electrodes overlying the lower thoracic spine epidural space - no evidence of wire breakage. No osseous abnormality. IMPRESSION: 1. No cause identified for fever. 2. Mild atelectasis in the right middle and lower lobe. No tami infiltrate 3. Mild dilatation of the common bile duct suggesting post cholecystectomy papillary stenosis 4. Small amount of free fluid in the deep true pelvis Interpreted and Authenticated by: Palmer Roche 10/29/16
[2016-10-29 06:56] LABS: ALT/SGPT 39 U/l (0-40); Albumin 3.1 gm/dL (3.2-5.2); Albumin/Globulin Ratio 1.5 (1.0-2.3); Alkaline Phosphatase 45 U/L (39-117); Bilirubin,Direct < 0.2 mg/dL (0.0-0.3); Blood Urea Nitrogen 11 mg/dl (8-23); Gamma Glutamyl Transpeptidase 96 U/L (5-36); Magnesium 2.1 mg/dL (1.6-2.5); Uric Acid 3.6 mg/dL (2.5-8.0)
[2016-10-29] MEDS: INSULIN LISPRO 1 UNIT/0.01 ML UNIT SQ SCH ×4 (08:11→20:36)
[2016-10-29] MEDS: VITAMIN D3 1,000 UNIT TABLET PO SCH (08:12)
[2016-10-29] MEDS: LOSARTAN 50 MG TABLET PO SCH (08:12)
[2016-10-29] MEDS ORDERED: DEXTROSE 31 GM ORAL.SUSP PO PRN (10:58)
[2016-10-29] MEDS ORDERED: ACETAMINOPHEN 325 MG TABLET PO PRN (10:58)
[2016-10-29] MEDS ORDERED: VANCOMYCIN PER PHARMACY IV SCH (10:58)
[2016-10-29] MEDS ORDERED: ONDANSETRON 4 MG/2 ML VIAL IV PRN (10:58)
[2016-10-29] MEDS ORDERED: DEXTROSE 50% 50 ML VIAL IV PRN (10:58)
--- NOTE | 2016-10-29 11:03 | Internal Med Progress Note ---
Medical - PN: Subj Patient information: Note initiated : 10/29/16 at 10:40 am Service Date, if different from initiated Date: [] Patient: Michelle Green a 66 y/o F admitted on 10/26/16 for SOB, Asthma/ Sepsis, Pneumonia. Chief Complaint: [] Interval history: Ms. Green is a 66 year old Female with history of asthma, history of breast cancer presents to the ER with complaints of shortness of breath and not feeling well. According to the patient, she startedto have these symptoms approximately 1 month ago when it [place] The patient was treated with a short course of steroids and antibiotics by her primary care physician at that point. The patient responded to treatment. However a three weeks later he started to have symptoms again. The patient's primary care physician started the patient on a long prednisone taper as well as Zithromax. the patient 's primary care provider ordered a CT scan which showed pneumonia in the right middle and upper lobe. The last 2 days. The patient has not been feeding well and is increasingly more short of breath ssociated with wheezing and dry cough. The patient has decreased effort tolerance. The shortness of breath is worse with activity and better with rest. Aggravated by smoke outside. The patient therefore presented to the ED. In the emergency room the x-ray chest is interpreted as negative. The patient's labs showed leukocytosis, elevated lactic acid, and a urine analysis positive, which is indicative of a urinary tract infection.he patient denies any symptoms suggestive of urinary tract infection, like burning micturition, foul-smelling urine or increased frequency of urination. The patient denies any chest pain, headache, dizziness, blurring of vision, sputum production, hemoptysis. She denies nausea, vomiting. She denies any COMPLAINTS, the patient has no other complaints except as mentioned above in HPI. 10/27: Pt seen examined, no acute overnight events, doing well, her breathing is a bit better than yesterday,stil has shortness of breath with activity and cough. he denies any, abdominal pain, nausea or vomiting. blood cultures are pending, urine culture is reported as gram-negative bacillus. 10/28: patient seen and examined, noted overnight events, patient slept okay. This morning, a lactic acid has been elevated at 5.1. Patient has a low-grade temperature. She denies any worsening cough, denies any abdominal pain. The patient has been on metformin,which is likely to have been the etiology behind the acidosis. We will give fluid resuscitation and reassess the patient's lactic acidosis. The patient remains on broad-spectrum IV antibiotics Urine culture growing Escherichia coli sensitive to the present antibiotics. 10/29: Patient seen and examined, still has some cough but otherwise doing well, her breathing is much better today. The lactic acid has resolved. I discussed the case with the patient's primary care provider. I reviewed the CT scan of the abdomen and pelvis, does not have a significant infiltrate, no evidence of abscess, no lymphadenopathy. I think the lactic acidosis is related to metformin as well as use of albuterol. The patient will be transferred to [facility] today. Pertinent ROS: Denies headache, dizziness Denies chest pain, palpitations Denies cough or shortness of breath (much improved) Denies abdominal pain, nausea or vomiting. - Constitutional Vitals: Vital Signs Temp Pulse Resp BP Pulse Ox 98.2 F 84 16 126/58 95 10/29/16 08:00 10/29/16 07:05 10/29/16 08:00 10/29/16 08:00 10/29/16 08:00 Period Temp Pulse Resp BP Sys/Rivas Pulse Ox Last 24 Hr 98.2 F-100.0 F 77-102 15-24 126-145/58-72 91-97 Intake and Output 10/28/16 10/29/16 10/29/16 21:59 05:59 13:59 Intake Total 2700 / 2700 2043 / 2043 407 / 407 Output Total 1300 / 1300 1700 / 1700 400 / 400 Balance 1400 / 1400 343 / 343 7 / 7 Weight 182 lb Intake & Output: Intake & Output 10/28/16 10/29/16 10/29/16 21:59 05:59 13:59 Intake Total 2700 / 2700 2043 / 2043 407 / 407 Output Total 1300 / 1300 1700 / 1700 400 / 400 Balance 1400 / 1400 343 / 343 7 / 7 Weight 182 lb Intake: IV 1050 / 1050 1543 / 1543 7 / 7 Sodium Chloride 0.45% 1, 1000 / 1000 000 ml @ 150 mls/hr IV . Q6H40M [facility] Rx#:[id number] Maxipime 1 gm In Dextrose 50 / 50 43 / 43 7 / 7 5% in Water 50 ml @ 100 mls/hr IV Q8H [facility] Rx#: [id number] Vancomycin 1,500 mg In 500 / 500 Sodium Chloride 0.9% 500 ml @ 333.3 mls/hr IV Q12H [facility] Rx#:[id number] Oral 1650 / 1650 500 / 500 400 / 400 Output: Void Amount 1300 / 1300 1700 / 1700 400 / 400 Other: Meal Dinner Breakfast Percent of Meal Consumed 100% 100% Exam: Constitutional; Afebrile, cooperative, alert, not in distress. Eyes- No icterus, , No periorbital swelling Ears- Ext ear normal, hearing normal to conversation. Neck- Midline trachea, supple Respiratory system: Air Entry equal on both sides, prolonged expiratory phase, wheezing, much better. Still has very mild wheeze CVS- Rate rhythm regular, S1,S2 heard, no gallop, no rub. Abdomen- Soft nontender abdomen, no organomegaly, no tenderness, no guarding or rigidity, LEAD ELECTRICAL ENGINEER- AOOx3, moving all extremities, no gross focal deficit noted. Medical - PN: Obj Da - Labs CBC & Chem 7: 10/29/16 03:43 10/29/16 03:43 Labs: Abnormal Lab Results 10/29/16 10/29/16 10/28/16 03:43 03:43 16:56 WBC 19.1 H RBC 3.93 L Hgb 11.8 L Hct 34.9 L Gran % 91.9 H Lymph % (Auto) 5.8 L [place] % (Auto) Gran # 17.6 H Lymph # (Auto) 1.1 L [place] # (Auto) VBG Lactic Acid Carbon Monoxide Screen 4.0 H Carbon Dioxide 20 L Anion Gap Glucose 234 H Calcium 7.9 L Phosphorus 2.2 L GGT 96 H ALT Total Protein 5.2 L Albumin 3.1 L Globulin 2.1 L 10/28/16 10/28/16 10/28/16 14:23 14:23 10:40 WBC RBC Hgb Hct Gran % Lymph % (Auto) [place] % (Auto) Gran # Lymph # (Auto) [place] # (Auto) VBG Lactic Acid 6.0 H* 4.9 H* Carbon Monoxide Screen Carbon Dioxide 16 L Anion Gap Glucose 271 H Calcium 7.8 L Phosphorus GGT ALT Total Protein Albumin Globulin 10/28/16 10/28/16 10/28/16 03:45 03:45 03:45 WBC 20.3 H RBC Hgb Hct Gran % 93.0 H Lymph % (Auto) 5.7 L [place] % (Auto) 0.8 L Gran # 18.8 H Lymph # (Auto) 1.2 L [place] # (Auto) VBG Lactic Acid 5.0 H* Carbon Monoxide Screen Carbon Dioxide 19 L Anion Gap 19.0 H Glucose 253 H Calcium Phosphorus 2.0 L GGT 108 H ALT 42 H Total Protein Albumin Globulin 10/27/16 10/27/16 10/26/16 04:01 04:01 14:30 WBC 11.1 H RBC Hgb Hct Gran % 93.1 H Lymph % (Auto) 6.5 L [place] % (Auto) 0.4 L Gran # 10.3 H Lymph # (Auto) 0.7 L [place] # (Auto) 0 L VBG Lactic Acid 2.3 H Carbon Monoxide Screen Carbon Dioxide 18 L Anion Gap 19.0 H Glucose 248 H Calcium 8.2 L Phosphorus GGT 97 H ALT Total Protein Albumin Globulin Meds: Medications Acetaminophen (Tylenol) 650 mg PO Q6HP PRN PRN Reason: PAIN/FEVER > 101 Albuterol/Ipratropium (Duoneb) 3 ml NEB Q6HRT [facility] Last Admin: 10/29/16 07:03 Dose: 3 ml Dextrose (Dextrose 50%) 0 ml IV UD PRN PRN Reason: Hypoglycemia Diagnostic Test (Pha) (Accu-Chek) 1 each FS ACHS [facility] Last Admin: 10/29/16 08:11 Dose: 1 each Glucose (Insta-Glucose) 15 gm PO PRN PRN PRN Reason: Hypoglycemia Guaifenesin (Robitussin Dm) 10 ml PO Q4HP PRN PRN Reason: Cough Last Admin: 10/29/16 08:25 Dose: 10 ml Cefepime HCl 1 gm/ Dextrose 50 mls @ 100 mls/hr IV Q8H [facility] Last Infusion: 10/29/16 08:26 Dose: Infused Vancomycin HCl 1,500 mg/ (Sodium Chloride) 500 mls @ 333.3 mls/hr IV Q12H [facility] Last Infusion: 10/29/16 05:07 Dose: Infused Sodium Chloride (Sodium Chloride 0.45%) 1,000 mls @ 150 mls/hr IV .Q6H40M [facility] Last Admin: 10/29/16 05:06 Dose: 150 mls/hr Insulin Human Lispro (Humalog) 0 unit SQ ACHS [facility] PRN Reason: Protocol Last Admin: 10/29/16 08:11 Dose: 2 unit Losartan Potassium (Cozaar) 50 mg PO DAILY [facility] Last Admin: 10/29/16 08:12 Dose: 50 mg Methylprednisolone Sodium Succinate (Solu-Medrol) 62.5 mg IV Q8 [facility] Last Admin: 10/29/16 05:33 Dose: 62.5 mg Metoprolol Succinate (Toprol Xl) 50 mg PO HS [facility] Last Admin: 10/28/16 21:20 Dose: 50 mg Ondansetron HCl (Zofran) 4 mg IV Q4HP PRN PRN Reason: Nausea And Vomiting Pramipexole Dihydrochloride (Mirapex) 2 mg PO QHS [facility] Last Admin: 10/28/16 21:20 Dose: 2 mg Tamoxifen Citrate (Tamoxifen) 20 mg PO [facility] Last Admin: 10/28/16 21:20 Dose: 20 mg Vancomycin HCl (Vancomycin Per Pharmacy) 1 order IV UD [facility] Vitamin D (Vitamin D3) 2,000 unit PO DAILY [facility] Last Admin: 10/29/16 08:12 Dose: 2,000 unit Medical - PN: A/P - Time Spent With Patient Total time spent is greater than 50% in coordination of care (as documented) at patient's floor/unit and/or counseling patient: - Narrative A/P Narrative: A/P Sepsis: stable clinically, levated WBC count is likely from steroids, lactic acidosis is resolved, blood pressure is stable. Pneumonia community Acquired: failed outpatient treatment, on vanco and zosyn continue same. cT does not show any evidence of pneumonia, we'll complete a 5 day course of antibiotics and will stop. Hyper glycemia due to steroids as well as diabetes. stable glucose, last check was 198. Monitor for now Adjust the dose of insulin as needed. HTN blood pressure seems reasonably controlled,we will continue her home dose of medications. Acute hypoxic Respiratory failure: due to pneumonia as well as asthma exacerbation. Continue with oxygen supplementation as neededwean off oxygen as tolerated Acute asthma exacerbation.:charito ROSA, steroids, DuoNeb nebs every 6 hours now. Continue Solu-Medrol lactic acidosis:likely due to metformin, an use of albuterol. Metformin was stopped, albuterol was measured every 6 hours, patient's lactic acidosis resolved overnight. Workup for other etiologies negative. Elevated WBC / Leucocytosis: likely secondary to use of steroids DNR Status Carb consistent diet. Medical - PN: Qual - Stroke Symptom Onset Unknown: No - VTE Deep Vein Thrombosis/Pulmonary Embolism Present on Admission: No
[2016-10-29] MEDS ORDERED: BENZOCAINE/MENTHOL 1 LOZENGE PO ONE (11:06)
[2016-10-29] MEDS: BENZOCAINE/MENTHOL 1 LOZENGE PO PRN ×2 (13:49→19:45)
[2016-10-29] MEDS: PRAMIPEXOLE 1 MG TABLET PO SCH (20:37)
[2016-10-29] MEDS: TAMOXIFEN 10 MG TABLET PO SCH (20:38)
[2016-10-29] MEDS: METOPROLOL SUCCINATE 50 MG TAB.XL.24H PO SCH (20:38)
[2016-10-30] MEDS: IPRATROPIUM/ALBUTEROL 3 ML AMPUL.NEB NEB SCH ×4 (00:38→19:34)
[2016-10-30] MEDS: methylPREDNISolone SOD SUCC 125 MG/2 ML VIAL IV SCH ×3 (05:47→21:32)
[2016-10-30] MEDS: BENZOCAINE/MENTHOL 1 LOZENGE PO PRN ×2 (05:47→10:16)
[2016-10-30] MEDS: CEFEPIME 1 GM in DEXTROSE 5% IN WATER 50 ML IV SCH (05:49)
[2016-10-30 05:53] LABS: Basophils # (Auto) 0 K/mcL (0.0-0.3); Basophils % (Auto) 0 % (0.0-2.0); Eosinophils # (Auto) 0 K/mcL (0.0-0.7); Eosinophils % (Auto) 0.2 % (0.0-7.0); Granulocytes % (Auto) 92.4 % (38.0-78.0); Lymphocytes # (Auto) 0.9 K/mcL (1.5-4.8); Lymphocytes % (Auto) 6.2 % (15.5-49.0); Mean Corpuscular HGB Conc 34.5 g/dL (31.0-36.0); Monocytes # (Auto) 0.2 K/mcL (0.1-0.9); Monocytes % (Auto) 1.2 % (1.0-12.0); Platelet Count 187 K/mcL (140-440); RBC 3.96 M/mcL (4.00-5.20); Red Cell Distribution Width 12.1 % (11.5-14.5)
[2016-10-30 06:30] LABS: ALT/SGPT 63 U/l (0-40); Albumin 3.1 gm/dL (3.2-5.2); Albumin/Globulin Ratio 1.4 (1.0-2.3); Alkaline Phosphatase 43 U/L (39-117); Bilirubin,Direct < 0.2 mg/dL (0.0-0.3); Blood Urea Nitrogen 11 mg/dl (8-23); Gamma Glutamyl Transpeptidase 156 U/L (5-36); Magnesium 2.2 mg/dL (1.6-2.5)
[2016-10-30] MEDS: 0.45 % SODIUM CHLORIDE 1,000 ML IV SCH ×4 (07:39→20:17)
[2016-10-30] MEDS: INSULIN LISPRO 1 UNIT/0.01 ML UNIT SQ SCH ×4 (08:15→20:52)
[2016-10-30] MEDS: VITAMIN D3 1,000 UNIT TABLET PO SCH (09:11)
[2016-10-30] MEDS: LOSARTAN 50 MG TABLET PO SCH (09:11)
[2016-10-30] MEDS: guaiFENesin/DEXTROMETHORPHAN ORAL SOL PO PRN ×2 (09:22→18:25)
[2016-10-30] MEDS: VANCOMYCIN 1,500 MG in 0.9 % SODIUM CHLORIDE 500 ML IV SCH (10:09)
--- NOTE | 2016-10-30 10:31 | Internal Med Progress Note ---
Medical - PN: Subj Patient information: Note initiated : 10/30/16 at 10:28 am Service Date, if different from initiated Date: [] Patient: Michelle Green a 66 y/o F admitted on 10/26/16 for SOB, Asthma/ Sepsis, Pneumonia. Chief Complaint: [] Interval history: Ms. Green is a 66 year old Female with history of asthma, history of breast cancer presents to the ER with complaints of shortness of breath and not feeling well. According to the patient, she startedto have these symptoms approximately 1 month ago when [place] The patient was treated with a short course of steroids and antibiotics by her primary care physician at that point. The patient responded to treatment. However a three weeks later he started to have symptoms again. The patient's primary care physician started the patient on a long prednisone taper as well as Zithromax. the patient 's primary care provider ordered a CT scan which showed pneumonia in the right middle and upper lobe. The last 2 days. The patient has not been feeding well and is increasingly more short of breath ssociated with wheezing and dry cough. The patient has decreased effort tolerance. The shortness of breath is worse with activity and better with rest. Aggravated by smoke outside. The patient therefore presented to the ED. In the emergency room the x-ray chest is interpreted as negative. The patient's labs showed leukocytosis, elevated lactic acid, and a urine analysis positive, which is indicative of a urinary tract infection.he patient denies any symptoms suggestive of urinary tract infection, like burning micturition, foul-smelling urine or increased frequency of urination. The patient denies any chest pain, headache, dizziness, blurring of vision, sputum production, hemoptysis. She denies nausea, vomiting. She denies any COMPLAINTS, the patient has no other complaints except as mentioned above in HPI. 10/27: Pt seen examined, no acute overnight events, doing well, her breathing is a bit better than yesterday,stil has shortness of breath with activity and cough. he denies any, abdominal pain, nausea or vomiting. blood cultures are pending, urine culture is reported as gram-negative bacillus. 10/28: patient seen and examined, noted overnight events, patient slept okay. This morning, a lactic acid has been elevated at 5.1. Patient has a low-grade temperature. She denies any worsening cough, denies any abdominal pain. The patient has been on metformin,which is likely to have been the etiology behind the acidosis. We will give fluid resuscitation and reassess the patient's lactic acidosis. The patient remains on broad-spectrum IV antibiotics Urine culture growing Escherichia coli sensitive to the present antibiotics. 10/29: Patient seen and examined, still has some cough but otherwise doing well, her breathing is much better today. The lactic acid has resolved. I discussed the case with the patient's primary care provider. I reviewed the CT scan of the abdomen and pelvis, does not have a significant infiltrate, no evidence of abscess, no lymphadenopathy. I think the lactic acidosis is related to metformin as well as use of albuterol. The patient will be transferred to [facility] today. 10/30: Patient seen examined, having some cough issues still which his making he short of breath, notes her breathing is slightly worse today than before, but overall is doing better from admission. she remains on 2 nebs every 6 hours and Solu-Medrol. We will continue to monitor for another day. Anticipate discharge tomorrow if continues to improve. Patient advised to keep ambulating. Pertinent ROS: Denies headache, dizziness Denies chest pain, palpitations cough and shortness of breath improved since admission, however, slightly worse since yesterday Denies abdominal pain, nausea or vomiting. - Constitutional Vitals: Vital Signs Temp Pulse Resp BP Pulse Ox 97.7 F 92 H 20 157/75 95 10/30/16 08:00 10/30/16 08:00 10/30/16 08:00 10/30/16 08:00 10/30/16 08:00 Period Temp Pulse Resp BP Sys/Rivas Pulse Ox Last 24 Hr 97.0 F-98.2 F 80-92 16-20 133-157/54-75 91-97 Intake and Output 10/29/16 10/30/16 10/30/16 21:59 05:59 13:59 Intake Total 2080 / 2080 350 / 350 1390 / 1390 Output Total 1450 / 1450 900 / 900 450 / 450 Balance 630 / 630 -550 / -550 940 / 940 Weight 181 lb Intake & Output: Intake & Output 10/29/16 10/30/16 10/30/16 21:59 05:59 13:59 Intake Total 2080 / 2080 350 / 350 1390 / 1390 Output Total 1450 / 1450 900 / 900 450 / 450 Balance 630 / 630 -550 / -550 940 / 940 Weight 181 lb Intake: IV 1550 / 1550 50 / 50 1000 / 1000 Sodium Chloride 0.45% 1, 1000 / 1000 1000 / 1000 000 ml @ 150 mls/hr IV . Q6H40M [facility] Rx#:[id number] Maxipime 1 gm In Dextrose 50 / 50 50 / 50 5% in Water 50 ml @ 100 mls/hr IV Q8H [facility] Rx#: [id number] Vancomycin 1,500 mg In 500 / 500 Sodium Chloride 0.9% 500 ml @ 333.3 mls/hr IV Q12H [facility] Rx#:[id number] Oral 530 / 530 300 / 300 390 / 390 Output: Void Amount 1450 / 1450 900 / 900 450 / 450 Other: Meal Dinner Breakfast Percent of Meal Consumed 75% 100% Feeding Ability Independent Independent # Voids 1 Exam: Constitutional; Afebrile, cooperative, alert, not in distress. Eyes- No icterus, , No periorbital swelling Ears- Ext ear normal, hearing normal to conversation. Neck- Midline trachea, supple Respiratory system: Air Entry equal on both sides, mild expiratory wheezing, no accessory muscle use, able to speak full sentences. CVS- Rate rhythm regular, S1,S2 heard, no gallop, no rub. Abdomen- Soft nontender abdomen, no organomegaly, no tenderness, no guarding or rigidity, [employer]- AOOx3, moving all extremities, no gross focal deficit noted. Medical - PN: Obj Da - Labs CBC & Chem 7: 10/30/16 04:59 10/30/16 04:59 Labs: Abnormal Lab Results 10/30/16 10/30/16 10/29/16 04:59 04:59 03:43 WBC 15.3 H RBC 3.96 L Hgb 11.9 L Hct 34.5 L Gran % 92.4 H Lymph % (Auto) 6.2 L [place] % (Auto) Gran # 14.2 H Lymph # (Auto) 0.9 L VBG Lactic Acid Carbon Monoxide Screen Carbon Dioxide 20 L 20 L Anion Gap Creatinine 0.5 L Glucose 235 H 234 H Calcium 7.8 L 7.9 L Phosphorus 2.5 L 2.2 L GGT 156 H 96 H ALT 63 H Lactate Dehydrogenase 264 H Total Protein 5.3 L 5.2 L Albumin 3.1 L 3.1 L Globulin 2.1 L 10/29/16 10/28/16 10/28/16 03:43 16:56 14:23 WBC 19.1 H RBC 3.93 L Hgb 11.8 L Hct 34.9 L Gran % 91.9 H Lymph % (Auto) 5.8 L [place] % (Auto) Gran # 17.6 H Lymph # (Auto) 1.1 L VBG Lactic Acid 6.0 H* Carbon Monoxide Screen 4.0 H Carbon Dioxide Anion Gap Creatinine Glucose Calcium Phosphorus GGT ALT Lactate Dehydrogenase Total Protein Albumin Globulin 10/28/16 10/28/16 10/28/16 14:23 10:40 03:45 WBC RBC Hgb Hct Gran % Lymph % (Auto) [place] % (Auto) Gran # Lymph # (Auto) VBG Lactic Acid 4.9 H* 5.0 H* Carbon Monoxide Screen Carbon Dioxide 16 L Anion Gap Creatinine Glucose 271 H Calcium 7.8 L Phosphorus GGT ALT Lactate Dehydrogenase Total Protein Albumin Globulin 10/28/16 10/28/16 03:45 03:45 WBC 20.3 H RBC Hgb Hct Gran % 93.0 H Lymph % (Auto) 5.7 L [place] % (Auto) 0.8 L Gran # 18.8 H Lymph # (Auto) 1.2 L VBG Lactic Acid Carbon Monoxide Screen Carbon Dioxide 19 L Anion Gap 19.0 H Creatinine Glucose 253 H Calcium Phosphorus 2.0 L GGT 108 H ALT 42 H Lactate Dehydrogenase Total Protein Albumin Globulin Meds: Medications Acetaminophen (Tylenol) 650 mg PO Q6HP PRN PRN Reason: PAIN/FEVER > 101 Albuterol/Ipratropium (Duoneb) 3 ml NEB Q6HRT [facility] Last Admin: 10/30/16 07:48 Dose: 3 ml Dextrose (Dextrose 50%) 0 ml IV UD PRN PRN Reason: Hypoglycemia Diagnostic Test (Pha) (Accu-Chek) 1 each FS ACHS [facility] Last Admin: 10/30/16 07:40 Dose: 1 each Glucose (Insta-Glucose) 15 gm PO PRN PRN PRN Reason: Hypoglycemia Guaifenesin (Robitussin Dm) 10 ml PO Q4HP PRN PRN Reason: Cough Last Admin: 10/30/16 09:22 Dose: 10 ml Cefepime HCl 1 gm/ Dextrose 50 mls @ 100 mls/hr IV Q8H [facility] Last Admin: 10/30/16 05:49 Dose: 100 mls/hr Sodium Chloride (Sodium Chloride 0.45%) 1,000 mls @ 150 mls/hr IV .Q6H40M [facility] Last Admin: 10/30/16 07:39 Dose: 150 mls/hr Vancomycin HCl 1,500 mg/ (Sodium Chloride) 500 mls @ 333.3 mls/hr IV Q12H [facility] Last Admin: 10/30/16 10:09 Dose: 250 mls/hr Insulin Human Lispro (Humalog) 0 unit SQ ACHS [facility] PRN Reason: Protocol Last Admin: 10/30/16 08:15 Dose: 3 unit Losartan Potassium (Cozaar) 50 mg PO DAILY [facility] Last Admin: 10/30/16 09:11 Dose: 50 mg Methylprednisolone Sodium Succinate (Solu-Medrol) 62.5 mg IV Q8 [facility] Last Admin: 10/30/16 05:47 Dose: 62.5 mg Metoprolol Succinate (Toprol Xl) 50 mg PO [facility] Last Admin: 10/29/16 20:38 Dose: 50 mg Ondansetron HCl (Zofran) 4 mg IV Q4HP PRN PRN Reason: Nausea And Vomiting Pramipexole Dihydrochloride (Mirapex) 2 mg PO QHS [facility] Last Admin: 10/29/16 20:37 Dose: 2 mg Tamoxifen Citrate (Tamoxifen) 20 mg PO [facility] Last Admin: 10/29/16 20:38 Dose: 20 mg Throat Lozenges (Cepacol) 1 lozenge PO PRN PRN PRN Reason: Sore Throat Last Admin: 10/30/16 10:16 Dose: 1 lozenge Vancomycin HCl (Vancomycin Per Pharmacy) 1 order IV [facility] Vitamin D (Vitamin D3) 2,000 unit PO DAILY [facility] Last Admin: 10/30/16 09:11 Dose: 2,000 unit Medical - PN: A/P - Time Spent With Patient Total time spent is greater than 50% in coordination of care (as documented) at patient's floor/unit and/or counseling patient: - Narrative A/P Narrative: A/P Sepsis: stable clinically, elevated WBC count is likely from steroids, lactic acidosis is resolved, blood pressure is stable. Pneumonia community Acquired: d/c vanco and zosyn, just use zithromax for bronchitis/ anti inflammatory effect. Hyper glycemia due to steroids as well as diabetes. stable glucose, last check was 198. Monitor for now Adjust the dose of insulin as needed. HTN blood pressure seems reasonably controlled,we will continue her home dose of medications. Acute hypoxic Respiratory failure: off oxygen Acute asthma exacerbation.:continue steroids, DuoNeb nebs every 6 hours now. clinically better. lactic acidosis:likely due to metformin, an use of albuterol. Metformin was stopped, albuterol was measured every 6 hours, patient's lactic acidosis resolved overnight. Workup for other etiologies negative. Elevated WBC / Leucocytosis: likely secondary to use of steroids, trending down now. DNR Status Carb consistent diet. Medical - PN: Qual - Stroke Symptom Onset Unknown: No - VTE Deep Vein Thrombosis/Pulmonary Embolism Present on Admission: No
[2016-10-30] MEDS ORDERED: AZITHROMYCIN 250 MG TABLET PO ONE (10:38)
[2016-10-30] MEDS: TAMOXIFEN 10 MG TABLET PO SCH (20:53)
[2016-10-30] MEDS: METOPROLOL SUCCINATE 50 MG TAB.XL.24H PO SCH (20:53)
[2016-10-30] MEDS: PRAMIPEXOLE 1 MG TABLET PO SCH (20:53)
[2016-10-31] MEDS: 0.45 % SODIUM CHLORIDE 1,000 ML IV SCH ×3 (00:07→09:43)
[2016-10-31] MEDS: IPRATROPIUM/ALBUTEROL 3 ML AMPUL.NEB NEB SCH ×2 (00:09→07:39)
[2016-10-31] MEDS: guaiFENesin/DEXTROMETHORPHAN ORAL SOL PO PRN (05:00)
[2016-10-31] MEDS: methylPREDNISolone SOD SUCC 125 MG/2 ML VIAL IV SCH (05:31)
[2016-10-31 06:19] LABS: Basophils # (Auto) 0 K/mcL (0.0-0.3); Basophils % (Auto) 0 % (0.0-2.0); Eosinophils # (Auto) 0.1 K/mcL (0.0-0.7); Eosinophils % (Auto) 0.4 % (0.0-7.0); Lymphocytes % (Auto) 7.1 % (15.5-49.0); Mean Corpuscular HGB Conc 33.3 g/dL (31.0-36.0); Mean Corpuscular Hemoglobin 29.9 pg (26.0-34.0); Monocytes # (Auto) 0.2 K/mcL (0.1-0.9); Monocytes % (Auto) 1.5 % (1.0-12.0); Platelet Count 200 K/mcL (140-440); RBC 4.28 M/mcL (4.00-5.20); Red Cell Distribution Width 12.4 % (11.5-14.5)
[2016-10-31 07:01] LABS: ALT/SGPT 93 U/l (0-40); Albumin 3.4 gm/dL (3.2-5.2); Albumin/Globulin Ratio 1.5 (1.0-2.3); Alkaline Phosphatase 44 U/L (39-117); Bilirubin,Direct < 0.2 mg/dL (0.0-0.3); Blood Urea Nitrogen 10 mg/dl (8-23); Gamma Glutamyl Transpeptidase 253 U/L (5-36); Magnesium 2.4 mg/dL (1.6-2.5); Uric Acid 2.6 mg/dL (2.5-8.0)
[2016-10-31] MEDS: INSULIN LISPRO 1 UNIT/0.01 ML UNIT SQ SCH ×2 (07:56→12:08)
[2016-10-31] MEDS ORDERED: AZITHROMYCIN 250 MG TABLET PO SCH (09:00)
[2016-10-31] MEDS: VITAMIN D3 1,000 UNIT TABLET PO SCH (09:13)
[2016-10-31] MEDS: LOSARTAN 50 MG TABLET PO SCH (09:13)
--- NOTE | 2016-10-31 11:46 | Discharge Summary ---
Medical - DS: Prov Patient information: Note initiated : 10/31/16 at 11:43 am Service Date, if different from initiated Date: [] Patient: Michelle Green 66 y/o F admitted on 10/26/16 for SOB, Asthma/ Sepsis, Pneumonia. Chief Complaint: [] Date of admission: 10/26/16 13:47 Discharge date: 10/31/16 Primary care physician: Levy Wilkinson Admitting clinician: Ramila Friedman Discharging clinician: Ramila Friedman Medical - DS: Meds - Discharge Medications Prescriptions: Azithromycin [Zithromax] 250 mg PO DAILY #3 tablet predniSONE [Prednisone] 5 mg PO [facility] #48 tablet Active and Home Medications: Home Medications albuterol sulfate HFA 90 mcg/actuation aerosol inhaler 90 mcg INHALATION ONCE PRN g 06/12/15 [History Confirmed 10/26/16 Last Taken 10/26/16] cholecalciferol (vitamin D3) 2,000 unit capsule 2,000 unit PO DAILY 08/04/16 [ History Confirmed 10/26/16 Last Taken 10/26/16 09:00] metformin ER 500 mg tablet,extended release 24 hr 500 mg PO BID #180 tab [Rx Confirmed 10/26/16 Last Taken 10/26/16 09:00] tamoxifen 20 mg tablet 20 mg PO HS 09/08/16 [History Confirmed 10/26/16 Last Taken 10/25/16 21:00] albuterol sulfate 2.5 mg/3 mL (0.083 %) solution for nebulization 2.5 mg INHALATION Q4H PRN #120 ml 10/15/16 [Rx Confirmed 10/26/16 Last Taken 10/26/16] fluticasone-salmeterol 115 mcg-21 mcg/actuation HFA aerosol inhaler 2 inh INHALATION Q12H #12 g 10/20/16 [Rx Confirmed 10/26/16 Last Taken 10/26/16] prednisone 5 mg tablet 5 mg PO .COMPLEX #60 tab 10/20/16 [Rx Confirmed 10/26/16 Last Taken 10/26/16] valsartan 80 mg tablet 80 mg PO QDAY #60 tab 10/20/16 [Rx Confirmed 10/26/16 Last Taken 10/26/16 09:00] Blood Sugar Diagnostic [Contour] 1 dose .ROUTE .MEDSUPPLY 10/26/16 [History Confirmed 10/27/16 Last Taken 10/26/16] Blood-Glucose Meter [Contour] 1 dose .ROUTE .MEDSUPPLY 10/26/16 [History Confirmed 10/26/16 Last Taken 10/26/16] Lancets [Pro Comfort Lancet] 1 dose .ROUTE .MEDSUPPLY 10/26/16 [History Confirmed 10/26/16 Last Taken 10/26/16] Metoprolol Succinate [Toprol Xl] 50 mg PO HS 10/26/16 [History Confirmed Last Taken 10/25/16 21:00] Pramipexole Di-HCl [Mirapex] 2 mg PO QHS 10/26/16 [History Confirmed 10/26/16 Last Taken 10/25/16 21:00] Medical - DS: Hosp Hospital course: Ms. Green is a 66 year old Female with history of asthma, history of breast cancer presents to the ER with complaints of shortness of breath and not feeling well. According to the patient, she started to have these symptoms approximately 1 month ago when it [place] The patient was treated with a short course of steroids and antibiotics by her primary care physician at that point. The patient responded to treatment. However a three weeks later he started to have symptoms again. The patient's primary care physician started the patient on a long prednisone taper as well as Zithromax. the patient's primary care provider ordered a CT scan which showed pneumonia in the right middle and upper lobe. The patient has not been feeding well and is increasingly more short of breath associated with wheezing and dry cough. The patient has decreased effort tolerance. The shortness of breath is worse with activity and better with rest. Aggravated by smoke outside. The patient therefore presented to the ED. In the emergency room the x-ray chest is interpreted as negative. The patient's labs showed leukocytosis , elevated lactic acid, and a urine analysis positive, which is indicative of a urinary tract infection.he patient denies any symptoms suggestive of urinary tract infection, like burning micturition, foul-smelling urine or increased frequency of urination. The patients Pna/ copd was treated with vancomycin and zosyn, she seemed to respond well to treatment, She was initially treated with duonebs and later changed to xoponex and ipratropium in light of persitant lactic acidosis. the patient had some low grade temp during the stay. The patient also had elevated lactic acid in her labs which was not responding well to IV fluids despite the patient having normal bp and good urine output. CT abdo and pelvis and CT chest did not reveal any infectious etiology. Her pna seemed to have resolved. The patients lactic acidosis was deemed to be due to either use of albuterol or metformin. This resolved after switching her to Xopenex as well as stopping the metformin. AT this time, I have advised pt to stop metfomrin till at least a week, lynnette can resume same once she is more stable, she will have to have her lactic acid checked after she resumes metformin to evaluate if this medication is causing lactic acidosis. The patient today is stable, breathing well, no wheezing, ambulating well down the hallway and eager to go home. She will be discharged home on some zithromax and a taper of prednisone. Discharge diagnosis: copd exacerbation. - Time Spent with Patient Total time spent providing and/or coordinating discharge services: Greater than 30 minutes Medical - DS: Exam - Constitutional Vitals: Vital Signs Temp Pulse Pulse Resp BP Pulse Ox 10/31/16 11:42 98.8 F 18 147/78 93 10/31/16 08:00 98 10/31/16 07:41 98 H 18 98 10/31/16 07:22 97.6 F 18 145/77 92 10/31/16 04:00 98.2 F 82 18 145/73 93 10/30/16 23:50 97.9 F 77 16 107/76 96 10/30/16 21:21 96.8 F L 102 H 20 144/78 96 10/30/16 19:34 98 H 16 10/30/16 16:00 98.5 F 84 16 114/62 90 10/30/16 13:33 98 H 18 94 10/30/16 12:00 98.1 F 80 22 156/77 92 Intake and Output 10/30/16 10/31/16 10/31/16 21:59 05:59 13:59 Intake Total 2080 / 2080 1000 / 1000 480 / 480 Output Total 1475 / 1475 1150 / 1150 200 / 200 Balance 605 / 605 -150 / -150 280 / 280 Intake: IV 1000 / 1000 1000 / 1000 Sodium Chloride 0.45% 1, 1000 / 1000 1000 / 1000 000 ml @ 150 mls/hr IV . Q6H40M [facility] Rx#:[id number] Oral 1080 / 1080 480 / 480 Output: Void Amount 1475 / 1475 1150 / 1150 200 / 200 Other: Meal Dinner 1 sherbert ice cream Breakfast Percent of Meal Consumed 100% 100% 100% Feeding Ability Independent Independent Independent # Bowel Movements 1 Weight 188 lb 8 oz Additional comments: Constitutional; Afebrile, cooperative, alert, not in distress. Eyes- No icterus, , No periorbital swelling Ears- Ext ear normal, hearing normal to conversation. Neck- Midline trachea, supple Respiratory system: Air Entry equal on both sides, No crackles or wheezing, no rhonchi. CVS- Rate rhythm regular, S1,S2 heard, no gallop, no rub. Abdomen- Soft nontender abdomen, no organomegaly, no tenderness, no guarding or rigidity, [employer]- AOOx3, moving all extremities, no gross focal deficit noted. Medical - DS: Data Labs on day of discharge: Labs from last 24 hours 10/31/16 10/31/16 05:14 05:14 WBC 14.1 H RBC 4.28 Hgb 12.8 Hct 38.5 MCV 90.0 MCH 29.9 MCHC 33.3 RDW 12.4 Plt Count 200 MPV 8.4 Gran % 91.0 H Lymph % (Auto) 7.1 L [place] % (Auto) 1.5 Eos % (Auto) 0.4 Baso % (Auto) 0 Gran # 12.8 H Lymph # (Auto) 1.0 L [place] # (Auto) 0.2 Eos # (Auto) 0.1 Baso # (Auto) 0 Sodium 134 Potassium 3.5 Chloride 98 Carbon Dioxide 20 L Anion Gap 16.0 BUN 10 Creatinine 0.7 GFR Calculation 90 Glucose 236 H Uric Acid 2.6 Calcium 7.8 L Phosphorus 2.9 Magnesium 2.4 Total Bilirubin 0.6 Direct Bilirubin < 0.2 GGT 253 H AST 50 H ALT 93 H Alkaline Phosphatase 44 Lactate Dehydrogenase 310 H Total Protein 5.7 L Albumin 3.4 Globulin 2.3 Albumin/Globulin Ratio 1.5 Triglycerides 121 Medical - DS: A/P - Patient/Caregiver Discharge Instructions Activity: increase activity as tolerated Diet: Regular Diet Additional Instructions: Activity as tolerated Follow up with Dr. Wilkinson. Contact the office on Thursday 11/02 to schedule. Return to ER for shortness of breath, difficulty breathing, chest pain, nausea and/or vomiting, fever, chills, dizziness Take your prednisone as a slow taper. new prescription given. Do not take metformin for atleast 1 week, and make sure your PCP check your lactic acid (blood test) once you start metformin to make sure there is no acid built up in your body. Prescriptions: Azithromycin [Zithromax] 250 mg PO DAILY #3 tablet predniSONE [Prednisone] 5 mg PO [facility] #48 tablet - Follow up Plan Follow up with: Claudio Wilkinson MD [Primary Care Provider] - (Dr. Wilkinson's office will call you with a hospital follow up appointment.) Disposition: Home, Self-Care Prognosis: Fair Rehab Potential: Fair I certify that the patient requires SNF services: No Overall status at discharge: patient is progressing back to baseline Medical - DS: Qual - VTE Deep Vein Thrombosis/Pulmonary Embolism Present on Admission: No
== END 2016-10-31 13:20 | disposition home or self-care (01) | DRG 871 ==
LOC: ED 10:34 → ICU 13:47 → MEDSUR 10-29 10:48
PROVIDERS: ADMIT Internal Medicine; ATTEND Internal Medicine